=== PATIENT | female | born 1975 | race Two or more races ===

== ENCOUNTER 2017-04-17 15:56 | Emergency (ER) | payer MEDICAID ==
[~2017-04-17] VITALS: Ht 172.7 cm; Wt 74.8 kg
[~2017-04-17 15:56] MED LIST: DIPH25TA26; EXCEDRIN; HYDR-2595; OXYCODONE-ACETAMINOPHEN
[2017-04-17 17:15] LABS: Basophils # (auto) 0 uL; Basophils % (auto) 0.2 % (0.0-2.0); Eosinophils # (auto) 0.1 uL; Monocytes # (auto) 0.6 uL; Nucleated Red Blood Cells % 0.1 %
[2017-04-17 17:17] LABS: Hematocrit 37.7 % (36.0-46.0); Hemoglobin 13.3 g/dL (12.2-16.2); Lymphocytes # (auto) 2.3 uL; Lymphocytes % (auto) 29.1 % (10.0-50.0); Mean Corpuscular Hemoglobin 34.1 pg (28.0-32.0); Mean Corpuscular Hgb Conc. 35.2 g/dL (32.0-36.0); Mean Platelet Volume 8.3 fL (6.9-10.8); Monocytes % (auto) 7.2 % (0.0-12.0); Neutrophils # (auto) 5.1 uL; Neutrophils % (auto) 62.5 % (37.0-80.0); Platelet Count (auto) 247 10^3/uL (140-450); Red Cell Distribution Width 13.3 % (11.8-14.3); White Blood Cell 8.1 10^3/uL (4.4-10.8)
[2017-04-17 17:23] LABS: Albumin 4.1 g/dL (3.4-5.0); Alkaline Phosphatase 70 U/L (45-117); Anion Gap 6 (5-15); Aspartate Aminotransferase 17 U/L (15-37); Bilirubin, Total 0.4 mg/dL (0.2-1.0); Blood Urea Nitrogen 16 mg/dL (7-18); Calcium 8.6 mg/dL (8.5-10.1); Carbon Dioxide 28 mmol/L (21-32); Chloride 103 mmol/L (98-107); GFR African American 84 mL/min; GFR Non-African American 70 mL/min; Glucose 96 mg/dL (74-106); Potassium 3.4 mmol/L (3.5-5.1); Sodium 137 mmol/L (136-145)
[2017-04-17 18:28] VITALS: BP 125/87
[2017-04-17 19:10] LABS: Urine Bilirubin Negative (Negative); Urine Blood Negative /uL (Negative); Urine Color Yellow (Yellow); Urine Glucose Normal (Normal); Urine Ketone Negative (Negative); Urine Mucus FEW (None Seen); Urine Nitrite Negative (Negative); Urine RBC 4 /hpf (0 - 4); Urine Squamous Epithelial Cell MOD /hpf (<5); Urine Urobilinogen Normal (Negative)
== END 2017-04-17 18:48 | disposition home or self-care (01) ==
LOC: ER 16:01
DX: S09.90XA Unspecified injury of head, initial encounter (principal); F31.9 Bipolar disorder, unspecified; F41.9 Anxiety disorder, unspecified; Z79.899 Other long term (current) drug therapy; W18.39XA Other fall on same level, initial encounter; Y93.01 Activity, walking, marching and hiking; Y92.89 Other specified places as the place of occurrence of the external cause; Y99.8 Other external cause status; Y93.89 Activity, other specified
CPT/HCPCS: 36415; 70450; 80053; 81001; 82962; 84484; 85025; 93005

== ENCOUNTER 2018-07-18 15:40 | Emergency (ER) | payer MEDICAID ==
[~2018-07-18] VITALS: Ht 175.3 cm; Wt 77.1 kg
[2018-07-18 15:53] VITALS: BP 138/84
[2018-07-18] MEDS ORDERED: ASPirin 81 mg TAB PO ONE (16:30)
== END 2018-07-18 17:19 | disposition home or self-care (01) ==
LOC: ER 15:50
DX: F41.9 Anxiety disorder, unspecified (principal); F32.9 Major depressive disorder, single episode, unspecified; F17.210 Nicotine dependence, cigarettes, uncomplicated; Z86.73 Personal history of transient ischemic attack (TIA), and cerebral infarction without residual deficits
CPT/HCPCS: 70450; 93005

== ENCOUNTER 2018-09-11 10:03 | Emergency (ER) | payer MEDICAID ==
[~2018-09-11] VITALS: Ht 175.3 cm; Wt 72.6 kg
[2018-09-11 11:23] VITALS: BP 133/82
[2018-09-11] MEDS ORDERED: cefTRIAXone SOD 1,000 MG VL IM ONE (12:15)
[2018-09-11] MEDS ORDERED: KETOROLAC TROMETH 60MG/2ML VIAL IM ONE (12:15)
[2018-09-11] MEDS ORDERED: IBUPROFEN 800 MG TAB PO ONE (12:45)
== END 2018-09-11 14:12 | disposition home or self-care (01) ==
LOC: ER 10:03
DX: L03.113 Cellulitis of right upper limb (principal); F17.210 Nicotine dependence, cigarettes, uncomplicated; F12.10 Cannabis abuse, uncomplicated; Z86.73 Personal history of transient ischemic attack (TIA), and cerebral infarction without residual deficits
CPT/HCPCS: 73130; 96372; 99283; J0696; J1885

== ENCOUNTER 2019-12-28 17:24 | Emergency (ER) | payer MEDICAID ==
[~2019-12-28] VITALS: Ht 177.8 cm; Wt 61.7 kg
[2019-12-28 17:34] VITALS: BP 134/72
== END 2019-12-28 18:45 | disposition left against medical advice (07) ==
LOC: ER 17:24
DX: H92.01 Otalgia, right ear (principal); Z53.21 Procedure and treatment not carried out due to patient leaving prior to being seen by health care provider